=== PATIENT | female | born 1980 | race Caucasian/White ===

== ENCOUNTER → 2020-01-26 | Outpatient (REF) | payer OTHER ==
[~2020-01-26] MED LIST: LEVOTAB10 PO; MONT10TA4 PO; OYST1TAB PO; PREN29TA4 PO; QUET1TAB10 PO; SM M250T2 PO; VENL75TA2 PO; VITA-243 PO
== END ==
LOC: M LAB REF 11:10
PROVIDERS: ATTEND Podiatrist
DX: M86.672 Other chronic osteomyelitis, left ankle and foot (principal); M79.671 Pain in right foot

== ENCOUNTER → 2020-02-26 | Outpatient (CLI) | payer OTHER | LOC: EDUNIT# 10:20 → M LABSMTC 10:21 | PROVIDERS: ATTEND Anesthesiology | DX: Z01.818 Encounter for other preprocedural examination (principal); Z11.59 Encounter for screening for other viral diseases; Z20.828 Contact with and (suspected) exposure to other viral communicable diseases | CPT/HCPCS: C9803; U0003 ==

== ENCOUNTER 2020-03-02 06:54 | Day surgery (SDC) | payer OTHER ==
[~2020-03-02] VITALS: Ht 165.1 cm; Wt 99.3 kg
[~2020-03-02 06:54] MED LIST changes: +BACITRACIN PWD 50,000 UNITS VIAL As Ordered ONE; +BUPIVACAINE HCL 0.5% 30 ML VIAL As Ordered ONE; +LIDOCAINE 2% MDV 20ML VIAL As Ordered ONE; +LR 1,000 ML IV ONE; +NEOSPORIN GU IRRIG 20 ML VIAL As Ordered ONE; +VANCOMYCIN 1000MG/20ML VIAL As Ordered ONE; +dexameTHASONE 4 MG/ML 1ML VIAL (J1100 PER 1MG) As Ordered ONE
[2020-03-02] MEDS ORDERED: LIDOCAINE 2% 100MG/5ML SDV (FOR ANES.) As Ordered ONE (07:45)
[2020-03-02] MEDS ORDERED: propofoL 200 MG/20 ML VIAL As Ordered ONE ×2 (07:45→09:26)
[2020-03-02] MEDS ORDERED: fentaNYL 100 MCG/2 ML INJECTION (J3010) As Ordered ONE (07:45)
[2020-03-02] MEDS ORDERED: MIDAZOLAM INJ 2MG/2ML VIAL (J2250 PER 1MG) As Ordered ONE (07:45)
[2020-03-02] MEDS ORDERED: PHENYLephrine HCL 500 MCG/5 ML (100MCG/ML) SYRINGE (J2370) As Ordered ONE (09:26)
[2020-03-02 10:20] VITALS: BP 122/73
[2020-03-02] MEDS ORDERED: ONDANSETRON 4MG/2ML VIAL IV PRN (10:30)
[2020-03-02] MEDS ORDERED: LR 1,000 ML IV SCH (10:30)
[2020-03-02] MEDS ORDERED: oxyCODONE 5MG TAB PO PRN (10:30)
[2020-03-02] MEDS ORDERED: HYDROMORPHONE HCL 0.5 MG/ 0.5 ML SYRINGE (J1170 PER 1) IV PRN (10:30)
[2020-03-02] MEDS ORDERED: fentaNYL 100 MCG/2 ML INJECTION (J3010) IV PRN (10:30)
[2020-03-02] MEDS ORDERED: ACETAMINOPHEN 1000MG 100ML IV BTL (OFIRMEV) (J0131 PER 10MG) As Ordered ONE (10:57)
--- NOTE | 2020-03-16 08:34 | REP ---
PORTABLE LEFT FOOT SERIES: CLINICAL: Status post biopsy. TECHNIQUE: AP, lateral and oblique portable views of the left foot. FINDINGS: Post surgical changes are identified along the distal aspect of the fifth metatarsal bone with overlying soft tissue changes. The remainder of the examination is essentially normal. IMPRESSION: Baseline post surgical changes involving the fifth toe. MTDD
--- NOTE | 2020-03-19 09:23 | RO ---
DATE OF OPERATION: 03/02/2020 PREOPERATIVE DIAGNOSIS: Probable osteomyelitis 5th metatarsophalangeal joint left foot. POSTOPERATIVE DIAGNOSIS: Probable osteomyelitis 5th metatarsophalangeal joint left foot. SURGEON: Kamron Menendez DPM PARKING ENFORCEMENT MANAGER: None. PROCEDURE PERFORMED: Bone biopsy 5th metatarsophalangeal joint left foot. IRRIGATION: Normal saline. IMPLANTABLES: None. ANESTHESIA: Local, MAC. HEMOSTASIS: Ankle pneumatic tourniquet at 250 mmHg for 38 minutes left ankle. DESCRIPTION OF OPERATION: On 03/02/2020 this 40-year-old white female was taken from hospital room to operating room and placed on the operating table in supine position. Following induction of IV sedation and local and regional anesthesia the left lower extremity was prepped and draped in usual aseptic manner. Attention was directed to the patients left foot. There was noted to be a previous cicatrix over the 5th metatarsophalangeal joint. This was utilized and 5 cm incision was placed on the lateral side of the 5th metatarsophalangeal joint. This was deepened, all coursing venous tributaries were identified and electrocoagulated. Linear capsulotomy was performed on the 5th metatarsophalangeal joint. Prominence was noted of the 5th metatarsal head and base of the 5th toe. Utilizing power saw a bone biopsy was created resecting the prominent questionable area of the base of the proximal phalanx of the 5th toe as well as the medial eminence of 1st metatarsal. After this resection of bone which was sent for aerobic, anaerobic, acid fast bacilli and fungus, the bone was evaluated. The bone was noted to be firm, no signs of active osteomyelitis were remaining at the margins of the bone. It was then copiously lavaged with normal saline. The capsular structures were coapted and maintained utilizing 2-0 Monocryl in simple interrupted-type fashion, subcutaneous tissues coapted and maintained utilizing 4-0 Monocryl in simple interrupted-type fashion, skin incision coapted and maintained utilizing 5-0 Monocryl in continuous subcuticular-type fashion. This was additionally reinforced with Steri-Strips. Sterile dressing was applied consisting of Adaptic, 4 x 4s, 4 x 4 splint and Coban. Ankle pneumatic tourniquet was rapidly deflated and instantaneous capillary filling time was noted to digits 1-5 of the patient's left foot. After the bone biopsy 1 gm of Vancomycin was instilled through the IV. The patient will not be on antibiotics, however, until the bone culture becomes available. Her questions were answered. SEFERINO
== END 2020-03-02 10:30 | disposition home or self-care (01) ==
LOC: M SDC 06:54
PROVIDERS: ATTEND Podiatrist
DX: M86.172 Other acute osteomyelitis, left ankle and foot (principal); F31.9 Bipolar disorder, unspecified; D64.9 Anemia, unspecified; Z79.899 Other long term (current) drug therapy; Z98.84 Bariatric surgery status; Z88.5 Allergy status to narcotic agent
CPT/HCPCS: 28052; 73630; 87070; 87075; 87116; 87206; J0131; J2250; J2370; J3010; J3370

== ENCOUNTER 2020-07-06 07:15 | Day surgery (SDC) | payer OTHER ==
[~2020-07-06] VITALS: Ht 167.6 cm; Wt 108.0 kg
[~2020-07-06 07:15] MED LIST changes: -BACITRACIN PWD 50,000 UNITS VIAL As Ordered ONE; -BUPIVACAINE HCL 0.5% 30 ML VIAL As Ordered ONE; -LIDOCAINE 2% MDV 20ML VIAL As Ordered ONE; +MONT10TA10 PO; -MONT10TA4 PO; -NEOSPORIN GU IRRIG 20 ML VIAL As Ordered ONE; +PREN1CHW6 PO; -QUET1TAB10 PO; +QUET300T2 PO; -VANCOMYCIN 1000MG/20ML VIAL As Ordered ONE; +ceFAZolin SOD 2 GM in IV 1 EA IV ONE; -dexameTHASONE 4 MG/ML 1ML VIAL (J1100 PER 1MG) As Ordered ONE
[2020-07-06] MEDS ORDERED: propofoL 200 MG/20 ML VIAL As Ordered ONE (08:08)
[2020-07-06] MEDS ORDERED: fentaNYL 100 MCG/2 ML INJECTION (J3010) As Ordered ONE (08:08)
[2020-07-06] MEDS ORDERED: MIDAZOLAM INJ 2MG/2ML VIAL (J2250 PER 1MG) As Ordered ONE (08:08)
[2020-07-06] MEDS ORDERED: LIDOCAINE 2% 100MG/5ML SDV (FOR ANES.) As Ordered ONE (08:08)
[2020-07-06] MEDS ORDERED: BUPIVACAINE HCL 0.5% 10ML VIAL As Ordered ONE (09:26)
[2020-07-06] MEDS ORDERED: dexameTHASONE 4 MG/ML 1ML VIAL (J1100 PER 1MG) As Ordered ONE ×2 (09:26→10:54)
[2020-07-06] MEDS ORDERED: LIDOCAINE 2% MDV 20ML VIAL As Ordered ONE (09:27)
[2020-07-06] MEDS ORDERED: NEOSPORIN GU IRRIG 20 ML VIAL As Ordered ONE (09:27)
[2020-07-06] MEDS ORDERED: BACITRACIN PWD 50,000 UNITS VIAL As Ordered ONE (09:27)
[2020-07-06] MEDS ORDERED: ONDANSETRON 4MG/2ML VIAL As Ordered ONE (10:53)
[2020-07-06] MEDS ORDERED: KETOROLAC 60MG 2ML VIAL As Ordered ONE (10:53)
[2020-07-06] MEDS ORDERED: METOCLOPRAMIDE INJ 10MG/2ML VIAL (J2765 PER 1) As Ordered ONE (10:54)
[2020-07-06] MEDS ORDERED: GENTAMICIN SULF 80MG/2ML VIAL As Ordered ONE (12:04)
--- NOTE | 2020-07-06 12:10 | REP ---
INDICATION: POST OP 5TH METATARSAL HEAD RESECTION COMPARISON: 03/02/2020. TECHNIQUE: Three views left foot. FINDINGS: There is evidence of resection of the head of the 5th metatarsal. Surgical defect is seen in the adjacent base of 5th proximal phalanx. The osseous structures otherwise appear intact and well aligned. There is mild posterior calcaneal spurring. IMPRESSION: Postsurgical changes as discussed above. <Electronically signed by Cristóbal Anand > 07/06/20 [id number]
[2020-07-06 12:50] VITALS: BP 170/79
--- NOTE | 2020-07-06 14:08 | RO ---
OPERATIVE NOTE DATE OF OPERATION: 07/06/2020 PREOPERATIVE DIAGNOSIS: 1. Avascular necrosis. 2. Osteomyelitis. 3. Painful fifth metatarsophalangeal joint, left foot. POSTOPERATIVE DIAGNOSIS: 1. Avascular necrosis. 2. Osteomyelitis. 3. Painful fifth metatarsophalangeal joint, left foot. PROCEDURE: Form fit metatarsal head resection, left foot. SURGEON: Kamron Menendez DPM. ANESTHESIA: Local monitored anesthesia care (MAC). IRRIGATION: Dilute gentamicin solution, 1 liter low pressure pulse lavage system. HEMOSTASIS: Ankle pneumatic tourniquet at 200 mmHg for 37 minutes. DESCRIPTION OF OPERATION: On July 05, 2020, this 40-year-old female was taken from her hospital room and placed on the operating table in supine position. Following induction of IV sedation and local and regional anesthesia the left lower extremity was prepped and draped in usual aseptic manner. Attention was directed to the patient's left foot. There was known to be a previous cicatrix over the fifth metatarsophalangeal joint. This area was used for the skin incision. Dissection was carried down to the level of capsular structures. The extensor tendon was retracted in a medial direction. Linear capsulotomy was performed in the same plane as the original skin incision. Fifth metatarsal was noted to be soft, with minimal cartilage on the head of the metatarsal. Utilizing a power saw, osteotomy was performed just proximal to the cartilage from dorsal to plantar through and through and this was sent to bacteriology for aerobic, anaerobic and acid-fast bacilli culture. There was an area on the medial aspect of the proximal phalanx that was eroded. This was dbrided with a sagittal saw and sent as well to microbacteriology for culture. The wound was then irrigated with dilute gentamicin solution, 1 liter, low pressure pulse lavage system. Intraoperative C-arm imagery was then utilized to check alignment of the fifth metatarsophalangeal joint and bone resection. Utilizing antibacterial 2-0 Monocryl, a pursestring-type suture was placed across the fifth metatarsophalangeal joint and the capsule was co-opted and maintained with 2-0 antibacterial Monocryl. Intraoperative C-arm image revealed good position of the fifth metatarsophalangeal joint. Subcutaneous tissues were co-opted and maintained with 4-0 Monocryl and the skin was co-opted and maintained with 3-0 Nylon in a simple interrupted-type fashion. Dry sterile dressing was applied. Tourniquet was released. Instantaneous capillary refilling time was noted in digits 1-5 of the patient's left foot. The patient having apparently tolerated the surgical procedure well was taken from the OR to the recovery room for further monitoring by the anesthesia department. Postoperative instructions were given upon discharge. SEFERINO
== END 2020-07-06 12:58 | disposition home or self-care (01) ==
LOC: M SDC 07:15
PROVIDERS: ATTEND Podiatrist
DX: M86.672 Other chronic osteomyelitis, left ankle and foot (principal); M79.672 Pain in left foot; M79.675 Pain in left toe(s); M87.078 Idiopathic aseptic necrosis of left toe(s); E11.9 Type 2 diabetes mellitus without complications; D64.9 Anemia, unspecified; F17.218 Nicotine dependence, cigarettes, with other nicotine-induced disorders; F32.9 Major depressive disorder, single episode, unspecified; F41.9 Anxiety disorder, unspecified; Z79.899 Other long term (current) drug therapy; Z88.5 Allergy status to narcotic agent; G43.909 Migraine, unspecified, not intractable, without status migrainosus; Z98.84 Bariatric surgery status
CPT/HCPCS: 28113; 73630; 87070; 87075; 87116; 87205; 87206; J0690; J1100; J1580; J1885; J2250; J2405; J2765; J3010

== ENCOUNTER 2020-11-23 07:03 | Day surgery (SDC) | payer OTHER ==
[~2020-11-23] VITALS: Ht 167.6 cm; Wt 108.4 kg
[~2020-11-23 07:03] MED LIST changes: +B-12100010 PO; +BACITRACIN PWD 50,000 UNITS VIAL As Ordered ONE; +BIOT10009 PO; +BUPIVACAINE HCL 0.5% 30 ML VIAL As Ordered ONE; +CALC600T36 PO; +CLON0.5T2 PO; +COLOCAP PO; +LIDOCAINE 1% MDV 20ML VIAL SQ PRN; +LIDOCAINE 2% MDV 20ML VIAL As Ordered ONE; +MAGN400C2 PO; +NEOSPORIN GU IRRIG 20 ML VIAL As Ordered ONE; +PROBCAP14 PO; +QUET400T PO; +REME15TA2 PO; +ZOLP5TAB PO; +dexameTHASONE 4 MG/ML 1ML VIAL (J1100 PER 1MG) As Ordered ONE
[2020-11-23] MEDS ORDERED: MIDAZOLAM INJ 2MG/2ML VIAL (J2250 PER 1MG) As Ordered ONE (07:54)
[2020-11-23] MEDS ORDERED: LIDOCAINE 2% 100MG/5ML SDV (FOR ANES.) As Ordered ONE (07:55)
[2020-11-23] MEDS ORDERED: propofoL 200 MG/20 ML VIAL As Ordered ONE ×3 (07:55→10:44)
[2020-11-23] MEDS ORDERED: fentaNYL 100 MCG/2 ML INJECTION (J3010) As Ordered ONE (07:55)
[2020-11-23] MEDS ORDERED: ACETAMINOPHEN 1000MG 100ML IV BTL (OFIRMEV) (J0131 PER 10MG) As Ordered ONE (10:04)
[2020-11-23] MEDS ORDERED: ONDANSETRON 4MG/2ML VIAL As Ordered ONE (10:05)
[2020-11-23] MEDS ORDERED: KETOROLAC 60MG 2ML VIAL As Ordered ONE (10:05)
[2020-11-23 11:45] VITALS: BP 103/54
--- NOTE | 2020-11-23 11:54 | REP ---
INDICATION: RIGHT FOOT BUNIONECTOMY. COMPARISON: None. TECHNIQUE: Three views obtained portably FINDINGS: Internal fixation screw is seen affixing the postsurgical osteotomy site involving the distal aspect of the 5th metatarsal. The alignment is near anatomical. The tip of the screw does not breach the joint space. IMPRESSION: As above <Electronically signed by Nikko West > 11/23/20 [id number]
--- NOTE | 2020-11-24 18:41 | RO ---
OPERATIVE NOTE DATE OF OPERATION: 11/23/2020 PREOPERATIVE DIAGNOSIS: 1. Tailor's bunion deformity, right foot. 2. Hammertoe deformity, fifth toe, right foot. POSTOPERATIVE DIAGNOSIS: 1. Tailor's bunion deformity, right foot. 2. Hammertoe deformity, fifth toe, right foot. PROCEDURE: SURGEON: Kamron Menendez DPM CAUSTIC PUMP OPERATOR: None. ANESTHESIA: Local MAC. IRRIGATION: Dilute bacitracin, neomycin and polymyxin B solution. HEMOSTASIS: Ankle pneumatic tourniquet at 200 mmHg for 42 minutes, right ankle. HARDWARE UTILIZED: Arthrex headless 2.5 x 14 mm screw. ESTIMATED BLOOD LOSS: Less than 1 mL DESCRIPTION OF PROCEDURE: On 11/23/20, this 40-year-old female was taken from her hospital room to the operating room and placed on the operating table in supine position. Following the induction of IV sedation and local and regional anesthesia, the right lower extremity was prepped and draped in the usual aseptic manner. Ankle pneumatic tourniquet was rapidly inflated to 200 mmHg. Sterile drape was completed and the following procedure was performed. Tailor's bunionectomy with distal V osteotomy and internal screw fixation, right foot. Attention was directed to the patient's right foot. There was noted to be a previous cicatrix over the fifth metatarsal area inferior to a tattoo. The incision was placed over this cicatrix and extended approximately 1 cm in a proximal direction. The incision was then deepened through the subcutaneous tissues and all gross venous tributaries were identified, underscored, clamped, cut, ligated or electrocoagulated as necessary. A linear capsulotomy was performed in the same plane and the capsular structures were dissected dorsally and plantarly. The lateral eminence was then smoothed, taking a sliver of bone from the lateral eminence. A V -shaped osteotomy was then performed in the distal metaphysis of the fifth metatarsal with a long plantar and short dorsal wing. Upon creation of this osteotomy, the capital fragment was transposed approximately 30-40% of the width of the shaft of the fifth metatarsal and fixated with an Arthrex headless 2.5 x 14 mm compression screw. The osteotomy was noted to be stable in all three cardinal planes. Genu cortical spike was osteotomized from dorsal to plantar. The wound was flushed with copious amounts of dilute bacitracin, neomycin and polymyxin B solution. The capsular structures were coapted and maintained utilizing 2-0 Monocryl in a simple interrupted type fashion. The subcutaneous tissues were coapted and maintained utilizing 4-0 Monocryl in a simple interrupted type fashion. The skin incision was coapted and maintained utilizing 4-0 Prolene in a simple interrupted type fashion. Attention was then directed to the fifth toe where the following procedure was performed. Proximal interphalangeal joint arthroplasty, fifth toe, right foot. Attention was directed to the patient's fifth toe. There was noted to be a hammertoe deformity. At this time, a 2 cm incision was placed over the proximal interphalangeal joint. The incision was deepened through subcutaneous tissues. A transverse tenotomy and capsulotomy were performed at the proximal interphalangeal joint. The extensor tendon was retracted in a proximal direction. The medial and lateral collateral ligaments were sharply dissected free from the head of the proximal phalanx utilizing a power saw. An osteotomy was performed at the anatomic leg of the proximal phalanx from dorsal plantar [id number]. The head was then removed. The wound was flushed with copious amounts of dilute bacitracin, neomycin and polymyxin B solution. The extensor tendon was coapted and maintained utilizing 2-0 Monocryl ini a simple interrupted type fashion. The skin incision was coapted and maintained using 4-0 Prolene in a simple interrupted type fashion. Following the completion of the surgical procedure, approximately 4 mg of dexamethasone sodium phosphate was instilled proximal in the surgical site. Attention was directed towards bandaging. A sterile compressive bandage was applied consisting of Adaptic, 4x4s, 4x4 splints, Sara, Kerlix and Coban. Ankle pneumatic tourniquet was rapidly deflated and instantaneous capillary filling time was noted through digits 1 through 5 of the patient's right foot. The patient apparently tolerated the surgical procedure well and was taken from the OR to the recovery room for further monitoring by the anesthesia department. Postoperative instructions were given upon discharge.
== END 2020-11-23 11:55 | disposition home or self-care (01) ==
LOC: M SDC 07:03
PROVIDERS: ATTEND Podiatrist
DX: M21.621 Bunionette of right foot (principal); M20.41 Other hammer toe(s) (acquired), right foot; M79.671 Pain in right foot; G43.909 Migraine, unspecified, not intractable, without status migrainosus; E11.9 Type 2 diabetes mellitus without complications; Z88.5 Allergy status to narcotic agent; Z91.040 Latex allergy status; D64.9 Anemia, unspecified; Z87.891 Personal history of nicotine dependence; Z79.899 Other long term (current) drug therapy; F31.9 Bipolar disorder, unspecified; F32.9 Major depressive disorder, single episode, unspecified; F41.9 Anxiety disorder, unspecified
CPT/HCPCS: 28110; 28285; 73630; 76000; 88300; C1713; J0131; J0690; J1100; J1885; J2250; J2405; J3010